=== PATIENT | female | born 1960 | race Caucasian/White ===

== ENCOUNTER 2021-06-19 10:33 | Outpatient (CLI) | payer OTHER, SELFPAY ==
--- NOTE | ~2021-06-19 | MM_ITS ---
EXAMINATION: MM scrn brianna implant BI w narinder HISTORY: Screening mammogram TECHNIQUE: Craniocaudal and mediolateral oblique 3-D tomosynthesis images with implant displacement a nd synthetic 2-D images were generated. Craniocaudal and mediolateral oblique views of the breasts wi thout implant displacement were obtained using full field digital mammography. CAD analysis was submi tted and interpreted. COMPARISON: 02/05/2017 BREAST PARENCHYMAL COMPOSITION: There are scattered areas of fibroglandular density. FINDINGS: There is no evidence of suspicious mass, calcification, or architectural distortion to sugg est malignancy in either breast. There has been no suspicious interval change. IMPRESSION: 1. No mammographic evidence of malignancy. 2. Recommend routine screening mammography in one year. BI-RADS Category 1: Negative Reviewed, dictated and finalized at location A.
== END 2021-06-19 10:34 | disposition home or self-care (01) ==
LOC: ANHIMG 10:36
PROVIDERS: PCP Nurse Practitioner Family; Visit Provider Nurse Practitioner Family
DX: Z12.31 Encounter for screening mammogram for malignant neoplasm of breast (principal)
CPT/HCPCS: 77063; 77067

== ENCOUNTER 2024-11-25 06:50 | Emergency (ER) | payer MEDICARE, MEDICAID, SELFPAY ==
--- NOTE | ~2024-11-25 | CT_ITS ---
EXAMINATION: CT brain wo con DATE: 11/25/2024 07:24 INDICATION: Head injury. Laceration to the scalp. TECHNIQUE: Computed tomography (CT) of the head was performed without intravenous contrast. The dose-length product was 605.33 mGy-cm. Automated exposure control and iterative reconstruction technique were employed. COMPARISON: None FINDINGS: Brain parenchymal volume is normal for age. No acute intracranial hemorrhage, infarction, mass or mass effect. No ventriculomegaly or midline shift. Paranasal sinuses and mastoids are pneumatized. No depressed skull fractures. IMPRESSION: 1. No acute intracranial abnormality. Reviewed, dictated and finalized at location O.
[2024-11-25 06:56] VITALS: BP 157/85; PULSE 72; RESP 17; TEMP 36.4; O2SAT 96
--- NOTE | 2024-11-25 08:25 | ED_ITS ---
HPI - Wound/Laceration General Chief Complaint: Wound/Laceration Stated Complaint: fall, laceration Time Seen by Provider: 11/25/24 07:01 History of Present Illness HPI narrative: Patient is a 64-year-old female who presents ER after a fall down some steps outside. She struck a plastic stents in her flower bed and suffered laceration to the back under neck just inferior to the skull. Tetanus up-to-date. No debris identified. Denies LOC or numbness or tingling to arms or legs. Related Data Allergies Allergy/AdvReac Type Severity Reaction Status Date / Time aspirin Allergy Severe GASTRIC Verified 11/25/24 07:27 UPSET Penicillins Allergy Intermediate Hives / Verified 11/25/24 07:27 Red Face Sulfa (Sulfonamide Allergy Mild Rash Verified 11/25/24 07:27 Antibiotics) meloxicam Allergy Unknown Drowsy Verified 11/25/24 07:27 Review of Systems Review of Systems: All systems reviewed & are unremarkable except as noted in HPI and below Constitutional: Constitutional: Reports no additional constitutional complaints Cardiovascular: Cardiovascular: Reports no additional cardiovascular complaints Respiratory: Respiratory: Reports no additional respiratory complaints Gastrointestinal: Gastrointestinal: Reports no additional gastrointestinal complaints Musculoskeletal: Musculoskeletal: Reports no additional musculoskeletal complaints PMFSH Past Medical History Medical History (Updated 11/25/24 @ 08:31 by Mack Valderrama MD) Healthy female adult Exam Narrative: GENERAL: Well-appearing, well-nourished, and in no acute distress. HEAD: Normocephalic, atraumatic. ENT: Mucous membranes moist. NECK: Supple. No midline tenderness with full range of motion. CHEST: Clear to auscultation. No respiratory distress. HEART: Regular rate and rhythm. Normal peripheral pulses. EXTREMITIES: Normal range of motion. No edema. SKIN: Warm, dry, 1.5 cm laceration right of midline upper neck inferior to the skull. NEURO: Alert and oriented x3. Course Course Emergency Course: Laceration. . Updated on imaging results. Discharge. Vital Signs Vital signs: Vital Signs Temperature 97.6 F 11/25/24 06:56 Pulse Rate 72 11/25/24 06:56 Respiratory Rate 17 11/25/24 06:56 Blood Pressure 157/85 H 11/25/24 06:56 Pulse Oximetry 96 11/25/24 06:56 Oxygen Delivery Room Air 11/25/24 06:56 Temperature 97.6 F 11/25/24 06:56 Pulse Rate 72 11/25/24 06:56 Respiratory Rate 17 11/25/24 06:56 Blood Pressure 157/85 H 11/25/24 06:56 Pulse Oximetry 96 11/25/24 06:56 Oxygen Delivery Room Air 11/25/24 06:56 Procedures Laceration Laceration 1: Date: 11/25/24 Time: 08:10 Site: neck Size (cm): 1.5 Description: linear Depth: simple, single layer Local Anesthetic: lidocaine 1% and with epi Amount of anesthesia used (mL): 3 Pre-repair: wound explored and irrigated extensively ====== Skin Level ====== Skin layer closed with: prolene Size (cm): 4-0 Number of sutures: 3 Technique: simple, interrupted ====== Subcutaneous Layer ====== Subcutaneous layer closed with: vicryl Size: 4-0 Number of sutures: 1 Technique: simple, interrupted ====== Muscle Layer ====== ====== Tendon Layer ====== MDM - Wound/Laceration Imaging Data Radiologist's impression: ITS Impressions Head CT 11/25/24 08:19 IMPRESSION: 1. No acute intracranial abnormality. Discharge Plan Discharge Clinical Impression: Laceration of neck Patient Disposition: Home Condition: Stable Instructions: Care For Your Stitches (ED) Additional Instructions: Remove your sutures in 7 days. Return to the ER if the wound is red hot, is draining pus, or you have additional concerns. Patient Language: Georgian Follow-up/Referrals: Dillon,Xuan Godfrey APN [Primary Care Provider, Unknown] - 1 Week
== END 2024-11-25 08:41 | disposition home or self-care (01) ==
PROVIDERS: Emergency Provider Emergency Medicine; PCP Nurse Practitioner Family
DX: S11.81XA Laceration without foreign body of other specified part of neck, initial encounter (principal); W10.9XXA Fall (on) (from) unspecified stairs and steps, initial encounter
CPT/HCPCS: 12001; 12031; 70450; 99284